=== PATIENT | female | born 1960 | race Caucasian/White ===

== ENCOUNTER 2016-04-30 05:48 | Inpatient (IN) | payer BC ==
[~2016-04-30] VITALS: Ht 157.5 cm; Wt 58.9 kg
[2016-04-30] VITALS (25 sets, daily range): BP systolic 97–126; BP diastolic 51–74; PULSE 64–95; RESP 12–20; Ht 157.5 cm; Wt 58.9 kg
[~2016-04-30 05:48] MED LIST: THROMBIN 5000 UNIT VIAL TOP ONE
[2016-04-30] MEDS ORDERED: LACTATED RINGER'S 1,000 ML IV* SCH (06:00)
[2016-04-30] MEDS ORDERED: CEFAZOLIN 2 GM/50 ML (PMX) 50 ML IVPB SCH (06:00)
[2016-04-30] MEDS ORDERED: LISI40TA9 PO (06:29)
[2016-04-30] MEDS ORDERED: AMLO-147 PO (06:29)
[2016-04-30] MEDS ORDERED: CEFAZOLIN 1 GM INJ ONE (07:00)
[2016-04-30] MEDS ORDERED: EPHEDrine SULFATE 50 MG/5 ML SYG ONE (07:00)
--- NOTE | 2016-04-30 07:23 | HPN ---
Date/Time of Note Date/Time of Note DATE: 04/30/16 TIME: 07:20 Interval H&P Admission Note Pt. seen H&P reviewed: No system changes She is now experiencing new onset of right lower extremity pain that radiates down right leg to lateral foot. She is still experiencing 3/5 right sided hip flexor weakness which has been going on for several months. LUCIEN HAMILTON MD Apr 30, 2016 07:23
[2016-04-30] MEDS ORDERED: GELATIN SIZE 100 SPONGE ONE (07:38)
[2016-04-30] MEDS ORDERED: CA CHLORIDE 10% 10 ML SYRINGE ONE (07:38)
[2016-04-30] MEDS ORDERED: BUPIVACAINE 0.25% (MPF) 30 ML INJ ONE (07:38)
[2016-04-30] MEDS ORDERED: SURGIFOAM POWDER 1 GM KIT ONE (07:38)
[2016-04-30] MEDS ORDERED: BUPIVACAINE 0.25%/EPI (SDV) 30 ML INJ ONE (07:38)
[2016-04-30] MEDS ORDERED: THROMBIN 5000 UNIT VIAL ONE (07:39)
[2016-04-30] MEDS ORDERED: ROCURONIUM 50 MG INJ ONE (07:53)
[2016-04-30] MEDS ORDERED: NEOSTIGMINE 3 MG/3 ML SYRINGE ONE (07:53)
[2016-04-30] MEDS ORDERED: SUCCINYLCHOLINE CHLORIDE 100 MG/5 ML SYG IV ONE (07:53)
[2016-04-30] MEDS ORDERED: MEPERIDINE 100 MG INJ ONE (07:53)
[2016-04-30] MEDS ORDERED: GLYCOPYRROLATE 1 MG INJ ONE (07:53)
[2016-04-30] MEDS ORDERED: LIDOCAINE 2% (SDV) 5 ML INJ ONE (07:53)
[2016-04-30] MEDS ORDERED: PROPOFOL 20 ML ONE (07:53)
[2016-04-30] MEDS ORDERED: POLYMYXIN/BACITRACIN 1L IRRIG ONE (08:41)
[2016-04-30] MEDS ORDERED: BUPIVACAINE 0.25%/EPI (SDV) 30 ML INJ INJ ONE (09:20)
[2016-04-30] MEDS ORDERED: POLYMYXIN/BACITRACIN 1L IRRIG IRR ONE (09:20)
[2016-04-30] MEDS ORDERED: ONDANSETRON 4 MG INJ ONE (11:11)
[2016-04-30] MEDS ORDERED: METOCLOPRAMIDE 10 MG INJ ONE (11:15)
[2016-04-30] MEDS ORDERED: ONDANSETRON 4 MG INJ IV PRN ×2 (12:00)
[2016-04-30] MEDS ORDERED: METOCLOPRAMIDE 10 MG INJ IV PRN (12:00)
[2016-04-30] MEDS ORDERED: NALOXONE (0.4 MG/ML) INJ IV PRN (12:00)
[2016-04-30] MEDS ORDERED: NACL 0.9% 3 ML SYG IV SCH (12:00)
[2016-04-30] MEDS ORDERED: EPHEDrine SULFATE 50 MG/5 ML SYG IV PRN (12:00)
[2016-04-30] MEDS ORDERED: MIDAZOLAM 1 MG/ML 2 ML INJ IV PRN (12:00)
[2016-04-30] MEDS ORDERED: HYDROmorphONE (0.2 MG/ML) 10ML SYG IV PRN ×2 (12:00)
[2016-04-30] MEDS ORDERED: PROCHLORPERAZINE 10 MG TAB PO PRN (12:00)
[2016-04-30] MEDS ORDERED: morphine (1 MG/ML) 10ML SYRINGE IV PRN ×2 (12:00)
[2016-04-30] MEDS ORDERED: FENTAnyl 50 MCG/ML VIAL IV PRN (12:00)
[2016-04-30] MEDS ORDERED: DIPHENHYDRAMINE 50 MG INJ IV PRN (12:00)
[2016-04-30] MEDS ORDERED: LABETALOL HCL 20MG INJ IV PRN (12:00)
[2016-04-30] MEDS ORDERED: hydrALAzine 20 MG INJ IV PRN (12:00)
[2016-04-30] MEDS ORDERED: ACETAMINOPHEN 325 MG TAB PO PRN (12:00)
[2016-04-30] MEDS ORDERED: MEPERIDINE 25 MG INJ IV PRN (12:00)
[2016-04-30] MEDS ORDERED: HYDROmorphONE 0.2 MG/ML PCA IV SCH (12:00)
--- NOTE | 2016-04-30 12:07 | OPR ---
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 Anterior lumbar interbody fusion via transpsoas approach L3-4 2. Placement of anterior interbody device L3-4 3. Placement of lateral plate instrumentation at L3-4 4. Use of morselized allograft bone. SURGEON: Lucien Hamilton MD ANESTHESIA: General endotracheal. ESTIMATED BLOOD LOSS: <50 cc SURGICAL INDICATION: The patient is a 56 year-old woman who presents with an increasing history of back and leg pain. The patient was found to have severe right greater than left foraminal stenosis due to adjacent segment degeneration at L3-4 above a prior posterior spinal instrumented fusion at L4-5. She was noted to have significant 2-3 out of 5 right sided hip flexor weakness and significant low back pain that radiated in the L3 and L4 nerve root distributions.The patient had failed conservative treatments. Risks, benefits and alternatives to an anterior and posterior spinal fusion with instrumentation were explained to the patient including but not exclusive of bleeding, infection, visceral injury, nerve injury, nonunion, instrumentation failure, lack of symptom relief, myocardial infarction, stroke, and pulmonary embolism, and they wished to proceed. DESCRIPTION OF TECHNIQUE: The patient was identified in the preoperative area and taken to the operating room. Rapid induction of general endotracheal anesthesia was performed. Patient was given 2 g of cefazolin for prophylaxis. The patient was then placed in the right lateral decubitus position with an axillary roll placed. Tape was applied across the torso and down the legs for further stabilization of the patient to the table. The right flank was then prepped and draped in the usual sterile manner. Using intraoperative fluoroscopy, the L3-4 disc space was clearly identified. The skin was injected using 0.25% Marcaine with epinephrine. A posterolateral incision was then created using a 10 blade. Further dissection through soft tissue was performed bluntly using Metzenbaum scissors to enter the retroperitoneal space. Manual palpation was used to palpate the peritoneum and the peritoneum was swept in a ventral direction. A direct lateral incision was then created using a 10 blade. Further dissection through soft tissue was again performed bluntly using Metzenbaum scissors, guided manually through the posterolateral incision. The retroperitoneal space was then directly entered. The starting dilator was guided down to the lateral aspect of the psoas muscle, while protecting the peritoneum. Both intraoperative fluoroscopy, as well as neuromonitoring were used to guide the dilator down to the lateral aspect of the disc space, while avoiding the lumbar plexus. A guidewire was then passed through the dilator into the disc space itself. Sequential dilation was performed. A final retractor was applied and stabilized to the table. The retractor was opened gently, just enough to visualize the lateral aspect of the disc space. Fibers of the psoas muscle were directly visualized and gently swept ventrally using a retractor. Again, the surgical field was probe to ensure that no neural elements remained in the surgical field itself. Attention was turned toward the anterior lumbar interbody fusion at L3-4. The lateral anulus was incised using a 15 blade. Disk material was then removed using pituitary rongeurs and curettes. Care was taken to release the contralateral anulus using Heaton elevators. The endplates were then decorticated using a rasp. Attention was turned toward placement of the anterior interbody device at L3-4. Trial spacers were inserted. A 8x 22 x 45 mm PEEK cage was then selected and filled using Osteocel morcellized allograft bone with stem cells. The cage was inserted into the disc space and malleted into place over slides. AP and lateral views of fluoroscopy confirmed the appropriate placement of the cage. Attention was turned toward placement the lateral plate. A 10 mm decade lateral plate was placed under direct and fluoroscopic visulaization. An awl was used to create the pilot control operator holes in the L3 and L4 vertebral bodies. Using fluoroscopy and direct visualization the appropriate sized decade bolts were placed to secure the plate. AP and Lateral Views were taken to verify optimal placement of the lateral plate. The wound was irrigated copiously using normal saline. The fascia was then closed using 0 Vicryl in interrupted fashion. Subcutaneous tissue was closed using 2-0 Vicryl in interrupted fashion. Skin was closed using a running 4-0 Monocryl stitch. The wounds were dressed using Dermabond, sterile gauze and Tegaderm. The patient was returned to the supine position. The patient was extubated immediately postoperatively and taken to the recovery room in stable condition. I was physically present and participated in the entire operation from incision to closure. IMPLANTS: 1. NuVasive PEEK XLIF cage [id number] 10 degree . 2. Osteocel pro morcellized allograft bone with stem cells (10cc). 3. 10 mm decade plate 4. 35mmX6.6 mm decade screw/ bolt 5. 40mmx5.5mm decade screw/bolt COMPLICATIONS: None. Surgeon: LUCIEN HAMILTON MD Anesthesia: general Estimated Blood Loss: minimal Complications: None Pt Condition Post Procedure: stable Disposition: PACU LUCIEN HAMILTON MD Apr 30, 2016 12:07
[2016-04-30] MEDS: FENTAnyl 50 MCG/ML VIAL IV PRN ×2 (12:28→13:03)
[2016-04-30] MEDS: CEFAZOLIN 1 GM/50 ML (PMX) 50 ML IVPB SCH ×2 (14:09→19:40)
--- NOTE | 2016-04-30 16:21 | RADRPT ---
PROCEDURE: Intraoperative imaging of the lumbar spine with fluoroscopy. CLINICAL INDICATION: Back pain. Intraoperative. TECHNIQUE: 7 images of the lumbar spine were obtained in the operating room with an image intensif ier. No radiologist was in attendance. 159.3 of fluoroscopy time was used. COMPARISON: No prior study is available for comparison. FINDINGS: For the purposes of this report, the last apparent true disc level is considered to be L5-S1. Based on this, images demonstrate posterior fusion with pedicle screws and connecting rods at L4 and L5. In addition, a lateral plate and screws is present at L3-4. IMPRESSION: 1. Intraoperative imaging of the lumbar spine. RPTAT: QQ .Daron Sanchez MD, Date Time Electronically viewed and signed by .Daron Sanchez MD, on 04/30/2016 16:21 .R/
[2016-05-01] MEDS: CEFAZOLIN 1 GM/50 ML (PMX) 50 ML IVPB SCH ×2 (00:48→05:14)
[2016-05-01 04:30] VITALS: BP 110/72; PULSE 74; RESP 16
[2016-05-01 05:17] LABS: HEMATOCRIT 31.9 % (37.0-47.0); HEMOGLOBIN 10.4 g/dl (12.0-16.0)
[2016-05-01 05:50] LABS: POTASSIUM 3.6 mmol/L (3.5-5.1)
[2016-05-01 05:53] LABS: CREATININE 0.7 mg/dl (0.44-1.00)
[2016-05-01 05:54] LABS: CALCIUM 8.3 mg/dl (8.4-10.2)
[2016-05-01 07:00] VITALS: BP 118/56; RESP 20
--- NOTE | 2016-05-01 10:21 | PN ---
DATE: SUBJECTIVE: The patient is a 56-year-old female who is currently postoperative day #1, status post anterior lumbar interbody fusion via transpsoas approach at L3-4 with lateral plate instrumentation for adjacent segment degeneration with severe bilateral foraminal stenosis. She currently reports t hat her pain is under good to moderate, controlled with a Dilaudid POLISHER APPRENTICE. She had no acute overnight events. She was able to ambulate with physical therapy today. She has been wearing her lumbar cors et when out of bed. She reports that the majority of her pain is over the right side in the area of the incision. She reports that her right thigh pain which she had prior to the surgery has had caitlyn e improvement. PHYSICAL EXAMINATION: GENERAL: She is alert and oriented x3, in no acute distress. VITAL SIGNS: T-max 98.4, blood pressure 106 to 118/56 to 73. Labs H and H 10.4/31.9. Electrolytes within normal limits. SPINE: The patient has gross sensation to light touch intact in the bilateral L3-S1 nerve distribut ions. She continues to have 2 to 3/5 hip flexor weakness on the right, which was present prior to t he procedure. She has 4/5 strength in her right knee extensor, ____, EHL and gastrocnemius soleus. On the left side she has 5/5 strength in all major muscle groups. ABDOMEN: Her abdomen is soft, tender, nondistended. She reports that she did have some flatus. ASSESSMENT AND PLAN: The patient is a 56-year-old female postop day 1 status post anterior lumbar i nterbody fusion via transpsoas approach at L2-3 with lateral plate instrumentation. Plan at this ti vt, we will have the patient continue to work with physical therapy for gait training and strengthen ing. We will advance her diet to regular as she is tolerating a clear diet and passing gas, and her abdomen is soft, nontender, nondistended. We will start her on [place] 5/325 mg 1 to 2 tabs p.o. q.4 hours for pain control. We will also continue to have the Dilaudid available for breakthrough pain . We will continue to monitor this patient closely. She will be discharged once she is tolerating a regular diet, her pain is under good control, and she clears physical therapy. Dictated By: LUCIEN XAVIER/ISHMAEL Conf#: [id number] DID#: [id number]
[2016-05-01] MEDS: HYDROCODONE/APAP (5/325) TAB PO PRN ×2 (10:24→13:58)
[2016-05-01] MEDS: LACTATED RINGER'S 1,000 ML IV SCH (12:22)
[2016-05-01 19:21] VITALS: BP 132/63; RESP 16
[2016-05-02 08:49] VITALS: BP 133/68; RESP 18
[2016-05-02] MEDS ORDERED: HYDROmorphONE 1 MG/ML SYG IV PRN (09:00)
[2016-05-02] MEDS: HYDROCODONE/APAP (5/325) TAB PO PRN ×4 (09:18→20:49)
[2016-05-02] MEDS: LACTATED RINGER'S 1,000 ML IV SCH (11:00)
--- NOTE | 2016-05-02 11:31 | RADRPT ---
PROCEDURE: XR Lumbar Spine. CLINICAL INDICATION: Postop evaluation. TECHNIQUE: AP, lateral and cone-down lateral view of the lumbar spine were obtained. COMPARISON: Intraoperative radiographs 04/30/2016. FINDINGS: There is a compression plate secured with lag screws to L3 and L4. There are post tear stabilizatio n rods secured to pedicular screws at L4-L5. There are biomechanical interbody spacers at L4-5 and L5-S1 without evidence of spondylolysis or spondylolisthesis. There are degenerative changes in the upper lumbar spine. IMPRESSION: 1. Status post posterior spinal fusion at L4-5 with biomechanical interbody spacer at L4-5. 2. A compression plate was placed along the site of L3 and L4 secured with lag screws to the bodies of the L3 and L4. Biomechanical interbody spacer which is anatomically aligned at L3-4. 3. Osteoarthritis of the lumbar spine. RPTAT:AAJJ Physician Janneth Date Time Electronically viewed and signed by Physician Janneth on 05/02/2016 11:30 JADON/
--- NOTE | 2016-05-02 11:39 | PN ---
DATE: ORTHOPEDIC SPINE PROGRESS NOTE SUBJECTIVE: The patient is a 56-year-old female postop day 2 status post anterior lumbar interbody fusion via transpsoas approach with lateral plate instrumentation at L3-4 for adjacent segment degeneration with severe bilateral foraminal and subarticular stenosis. She is doing well today. She has been using her Dilaudid WATER QUALITY ASSISTANT significantly less over the past 24 hours. She reports that she is getting approximately 0.2 mg every 2 hours as needed for pain. She has been working well with physical therapy. She still reports some nausea. She reports that she is passing some gas. OBJECTIVE: VITAL SIGNS: Afebrile, stable. NEUROLOGIC: The patient has 4+/5 strength in the right tibia and gastrocnemius soleus, EHL. Her quads are 4-/5. Her hip flexors remain 2 to 3/5. Gross sensation to light touch is intact throughout. Her neuro exam is intact in the left lower extremity. Her incision sites are dry with postsurgical dressing intact. ABDOMEN: Soft, nontender, nondistended. She has positive bowel sounds. ASSESSMENT AND PLAN: Postop day 2 status post XLIF L3-4 with lateral plate instrumentation doing well. PLAN: At this time, we will obtain x-rays, 2 views, of the lumbar spine today. She will continue to work with physical therapy. We will discontinue the WATER QUALITY ASSISTANT. Her So has already been discontinued. We will start her on [place] 5/ 325 mg p.o. q. 4 hours p.r.n. pain 1 to 2 tabs. We will also supplement her diet with Ensure to make sure that she is eating well. Dictated By: LUCIEN XAVIER/ISHMAEL Conf#: [id number] DID#: [id number] MTDD
[2016-05-02 19:29] VITALS: BP 117/59; RESP 18
[2016-05-02 19:34] VITALS: BP 101/52; RESP 17
[2016-05-03] MEDS: HYDROCODONE/APAP (5/325) TAB PO PRN ×5 (01:12→21:07)
[2016-05-03 08:20] VITALS: BP 114/55; RESP 18
[2016-05-03] MEDS: LACTATED RINGER'S 1,000 ML IV SCH (11:00)
[2016-05-03] MEDS ORDERED: MAGNESIUM HYDROXIDE 30ML CUP PO PRN (17:00)
[2016-05-03 19:20] VITALS: BP 116/62; RESP 20
[2016-05-04] MEDS: HYDROCODONE/APAP (5/325) TAB PO PRN ×3 (01:27→12:27)
[2016-05-04 08:30] VITALS: BP 122/64; RESP 18
[2016-05-04] MEDS: LACTATED RINGER'S 1,000 ML IV SCH (10:32)
--- NOTE | 2016-05-04 12:25 | PDOCDIS ---
Discharge Instructions CONDITION Patient Condition: Good HOME CARE INSTRUCTIONS: Diet Instructions: RegularSpecial Diet: regular ACTIVITY: Activity Restrictions: Slowly Increase Activity Rest between Activity Avoid heavy lifting Do not operate Machinery Avoid Heavy Housework Bathing Restrictions: ShowerActivity Restrictions Comment: No excessive bending, lifting greater than 10 pounds, twisting, wear lumbar FOLLOW UP/APPOINTMENTS Appointments [address] Hamilton. Will call for follow-up appointment. LUCIEN HAMILTON MD May 04, 2016 12:25
[2016-05-04] MEDS ORDERED: HYDR-3498 PO (12:26)
--- NOTE | 2016-05-04 15:05 | DS ---
DATE OF ADMISSION: 04/30/2016 DATE OF DISCHARGE: 05/04/2016 ADMISSION DIAGNOSIS: Severe bilateral right greater than left L3-4 foraminal and subarticular spina l stenosis secondary to adjacent segment degeneration above a prior L4-5 fusion. DISCHARGE DIAGNOSIS: Severe bilateral right greater than left L3-4 foraminal and subarticular spina l stenosis secondary to adjacent segment degeneration above a prior L4-5 fusion. PROCEDURE PERFORMED DURING THIS ADMISSION: On 04/30/2016 the patient underwent an anterior lumbar i nterbody fusion with lateral plate instrumentation via transpsoas approach at L3-4. Her postoperati ve course was uncomplicated. She was cleared by physical therapy prior to discharge. HOSPITAL COURSE: Patient was admitted to the hospital on 04/30/2016 where she underwent aforementio rudy procedure without complications. Prior to discharge she was passing gas, tolerating a regular d iet and was cleared by physical therapy. Her pain was under good control with p.o. pain medication. DIET AT DISCHARGE: Regular. MEDICATIONS AT DISCHARGE: Include: 1. Hydrocodone/acetaminophen 5/325 mg 1 to 2 tabs every 4 hours p.r.n. pain. She was also told t o resume her home medications which include: 2. Amlodipine. 3. Lisinopril. ACTIVITIES AT DISCHARGE: The patient was told to limit her lifting to no greater than 10 pounds and avoid excessive bending or twisting. FOLLOWUP APPOINTMENTS: She will follow up in our office in 2 weeks for repeat evaluation. WOUND CARE: The patient was told to keep her incision clean, dry and intact with postsurgical dress ings in place. She was told to shower with these postoperative dressings but try to keep them dry w ith covering them with plastic. She was told that she could remove the dressings in 3 days. CONDITION ON DISCHARGE: Stable. Dictated By: LUCIEN XAVIER/ISHMAEL Conf#: [id number] DID#: [id number]
== END 2016-05-04 13:10 | disposition home or self-care (01) | DRG 460 ==
LOC: REC 05:48 → MS1 13:25
PROVIDERS: ADMIT Orthopaedic Surgery; ATTEND Orthopaedic Surgery
PROC: 0SB20ZZ Excision of Lumbar Vertebral Disc, Open Approach (ICD-10-PCS; 2016-04-30)
PROC: 0SG00A0 Fusion of Lumbar Vertebral Joint with Interbody Fusion Device, Anterior Approach, Anterior Column, Open Approach (ICD-10-PCS; principal; 2016-04-30 08:00)
DX: M48.06 Spinal stenosis, lumbar region (principal); I10 Essential (primary) hypertension; M48.8X6 Other specified spondylopathies, lumbar region
CPT/HCPCS: 72100; 72114; 80048; 85014; 85018; 86850; 86900; 86901; 97116; 97162; 97530; J0330; J0690; J1170; J1644; J2175; J2405; J2710; J2765; J3010; J7120